=== PATIENT | female | born 1995 | race Caucasian/White ===

== ENCOUNTER 2025-08-10 19:53 | Inpatient (IN) | payer OTHER, SELFPAY ==
[2025-08-10 19:57] VITALS: BP 137/88; PULSE 82; TEMP 36.8; O2SAT 100; BMI 23.0
--- OUTSIDE RECORDS SUMMARY | 2025-08-10 22:01 | XMS_ITS | Clinical Summary ---
Author Organization [facility] Healthcare Address [address] [place] [address] Care Team Providers Care Gathering Worker Name Role Phone George Briggs MD Primary Care Provider [phone] Social History Tobacco UseTypesPacks/DayYears UsedDateSmoking Tobacco: Never Assessed CommentsUnknownSex and Gender InformationValueDate RecordedSex Assigned at Not on fileLegal WiqZipnlf62/15/2023 8:29 PM EDTGender IdentityNot on file Sexual OrientationNot on file Last Filed Vital Signs Vital SignReadingTime TakenCommentsBlood Cbxrpelr051/7604/ 12:00 PM EDT Pulse--Temperature--Respiratory Rate--Oxygen Saturation--Inhaled Oxygen Concentration--Ohvysn22.7 kg (125 lb)02/14/2021 12:00 PM ZBJXwztdr922 cm (5' 3 ) 02/14/2021 12:00 PM EDTBody Mass Index22.1407 12:00 PM EDT Plan of Treatment DateTypeDepartmentCare Team (Latest Contact Info)Nfnunmiwapi97/05/2026 10:30 AM ESTOffice Visit [facility] [address] [place] [phone] George Briggs MD [address] [place] [address] Health MaintenanceDue DateLast DoneCommentsPap Smear2016Influenza Vaccine (#1)2025ervical Cancer Tbbdhsczy09/14/2025HPV/Mfulvo7007/25/2025 Pneumococcal Vaccine: Pediatrics (0 to 5 Years) and At-Risk Patients (6 to 64 Years)Aged OutNo longer eligible based on patient's age to complete this topic Care Teams Team MemberRelationshipSpecialtyStart DateEnd Date George Briggs MD [address] [place] [address] PCP - GeneralFamily Occmecdj55/29/25
--- NOTE | 2025-08-10 22:27 | CT_ITS ---
The [address] [address] Patient Name: SIDDHARTH ZULETA MRN: [id number] date: 1995 Sex: F Assigned Patient Location: ER Current Patient Location: ER Accession/Order Number: [id number] Exam Date: 08/10/2025 22:40 Report Date: 08/10/2025 23:07 At the request of: KARLA COBIAN MD Procedure: CT lower leg RT wo con CT lower leg RT wo con 08/10/2025 10:46 PM SIGNS AND SYMPTOMS: right medial leg abscess TECHNIQUE: Multidetector CT axial slices of the right lower extremity without IV contrast. Multiplanar reformats were performed and viewed on a separate workstation and reviewed to further define anatomy and possible pathology. CT was performed with one or more of the following dose reduction techniques: Automated exposure control, adjustment of the mA and/or kV according to patient size, or use of iterative reconstruction technique. COMPARISON: None. FINDINGS: There is skin thickening along the medial aspect of the right thigh with fat stranding in the adjacent subcutaneous fat. Edema extends along the fascial planes along the vastus medialis to the level of the medial femoral condyle. No well demarcated peripherally enhancing fluid collection to suggest abscess. Mildly prominent inguinal lymph nodes are noted. CT/CT lower leg RT wo con IMPRESSION: No well demarcated peripherally enhancing fluid collection to suggest abscess. There is skin thickening along the medial aspect of the right thigh with fat stranding in the adjacent subcutaneous fat. Edema extends along the fascial planes along the vastus medialis to the level of the medial femoral condyle. This presumably represents cellulitis. Mildly prominent inguinal lymph nodes are noted on the right which are most likely reactive. Impression dictated by: Denzel Caicedo M.D. 08/10/2025 11:07 PM Dictation Location: [place] [address] Electronically authenticated by: [id number] Y Date: 08/10/2025 23:07
--- NOTE | 2025-08-10 22:46 | ED_ITS ---
HPI - Skin/Abscess/Foreign Bdy General Chief complaint: Skin/Abscess/Foreign Body Stated complaint: Extremity PAIN, Lower Time Seen by Provider: 08/10/25 20:35 Source: patient Mode of arrival: walk-in History of Present Illness HPI narrative: This 30-year-old female with no significant medical history who does not have a history of IV drug use or wrestling presents for evaluation of a red, swollen, tender area at the medial aspect of her right leg. She states that on Saturday she thought she had an ingrown hair on her leg and tried to get the hair out. She states it then developed redness and swelling around the area. She had some slight drainage several days ago. She was seen in urgent care and placed on clindamycin but has not had any relief. She does not have any fevers or chills. Her mother states she is having difficulty walking due to the infection in her right medial leg. She does not have a known history of MRSA. She has an approximately 16 x 16 cm area of erythema on the medial aspect of her right middle thigh with a central area that appears to be a small indurated abscess and around that an indurated area approximately 4 x 4 cm. It is markedly tender. There is no lymphangitic streaking. It is not circumferential. Related Data Home Medications ?Medication ?Instructions ?Recorded ?Confirmed No Known Home Medications 08/10/2507/14 Allergies Allergy/AdvReac Type Severity Reaction Status Date / Time No Known Drug Allergies Allergy Verified 08/10/25 20:03 Review of Systems ROS Status of ROS 10 or more systems reviewed and unremark able except as noted in history and below PFSH PFSH Social History Little interest or pleasure in doing things: not at all Feeling down, depressed, or hopeless: not at all Exam Narrative Exam Narrative: Vital signs and Nursing Notes reviewed: Is afebrile with a normal pulse, blood pressure is minimally elevated at 137/88, she is not hypoxic with pulse ox of 100% on room air General: Awake, alert, oriented, no acute distress, lying comfortably on the stretcher HEENT: Normocephalic atraumatic, mucous membranes are moist and pink, eyes are clear, normal conjunctiva, vision is grossly intact Chest: Lungs are clear to auscultation with good air entry, there is no wheezing rhonchi or rales appreciated no accessory muscle use, patient is speaking in complete sentences-no chest wall tenderness to palpation CVS: Regular rate and rhythm S1-S2, no murmurs rubs or gallops, pulses are brisk and equal bilaterally ABD: Soft, nondistended, nontender, no rebound guarding or rigidity, bowel sounds are normal, no pulsatile masses appreciated Extremities: Moving all extremities, there is an approximately 16 x 16 cm area of erythema at the medial portion of the right thigh. In the center of this is an indurated area approximately 3 x 3 cm and what appears to be a small indurated abscess in the center of that. No drainage was able to be expressed. The remainder of her legs are normal. She has several tattoos but none of them are new. Skin: Normal in appearance without rash,pallor, petechiae or purpura Neuro: No focal deficits Constitutional Vital Signs, click to edit/add: Last Vital Signs Temp 98.2 F 08/10/25 19:57 Pulse 82 08/10/25 19:57 Resp 16 08/10/25 19:57 BP 137/88 08/10/25 19:57 Pulse Ox 100 08/10/25 19:57 O2 Del Method Room Air 08/10/25 19:57 Course Vital Signs Vital signs: Vital Signs Temperature 98.2 F 08/10/25 19:57 Pulse Rate 82 08/10/25 19:57 Respiratory Rate 16 08/10/25 19:57 Blood Pressure 137/88 08/10/25 19:57 Pulse Oximetry 100 08/10/25 19:57 Oxygen Delivery Method Room Air 08/10/25 19:57 Temperature 98.2 F 08/10/25 19:57 Pulse Rate 82 08/10/25 19:57 Respiratory Rate 16 08/10/25 19:57 Blood Pressure 137/88 08/10/25 19:57 Pulse Oximetry 100 08/10/25 19:57 Oxygen Delivery Method Room Air 08/10/25 19:57 MDM - Skin/Abscess/Foreign Bdy MDM Narrative Medical decision making narrative: This 30-year-old female with no significant medical history who does not have a history of IV drug use or wrestling or MRSA as far as she knows who has several tattoos none of which are new presents for evaluation of 5 days of redness and swelling at the right medial thigh. The patient states that she thought she had an ingrown hair on her thigh on Saturday and tried to take it out. It then became inflamed and started to become red and swollen and tender. Her mother breezy a red line around the area yesterday and she was seen at urgent care and started on clindamycin. Since that time the symptoms have increased in size and tenderness. Her mother states she is having a hard time walking due to the pain in her medial thigh. She has not had any fevers or chills. She has an approximately 16 x 16 area of erythema at the right medial thigh with a central area of induration and small abscess. There was no drainage able to be expressed. An IV was placed and septic workup was ordered. She has a normal white count and stable hemoglobin. Lactic acid is normal. Inflammatory markers are elevated. Blood cultures are pending. Electrolytes were normal. CT scan of the extremity shows a cellulitis without drainable abscess or signs of necrotizing fasciitis. She was medicated with IV fluids, Toradol for pain, vancomycin and Unasyn. The case was discussed with the hospitalist and she is accepted for admission to [facility]. Patient is agreeable to the admission. Lab Data Labs: Lab Results 08/10/25 Range/Units 22:35 WBC 10.2 (4.0-11.0) 10^3/uL RBC 4.58 (4.20-5.40) 10^6/uL Hgb 14.6 (12.0-16.0) g/dL Hct 41.6 (36.0-48.0) % MCV 90.8 (81.0-99.0) fL MCH 31.9 (26.7-34.0) pg MCHC 35.1 (29.9-35.2) g/dL RDW 12.0 (11.0-15.0) % Plt Count 213 (150-450) 10^3/uL MPV 9.5 (9.5-13.5) fL Neut % (Auto) 67.6 (43.0-75.0) % Lymph % (Auto) 24.2 (20.5-60.0) % Woodward % (Auto) 5.9 (1.7-12.0) % Eos % (Auto) 1.5 (0.9-7.0) % Baso % (Auto) 0.5 (0.2-2.0) % Neut # (Auto) 6.9 H (1.4-6.5) 10^3/uL Lymph # (Auto) 2.5 (1.2-3.8) 10^3/uL Woodward # (Auto) 0.6 (0.3-0.8) 10^3/uL Eos # (Auto) 0.2 (0.0-0.7) 10^3/uL Baso # (Auto) 0.1 (0.0-0.1) 10^3/uL Abs Immat Gran (auto) 0.03 (0.00-0.03) 10^3/uL Imm/Tot Granulo (auto) 0.3 (0.0-0.5) % ESR 26 H (<=20) mm/hr Sodium 139 (136-145) mmol/L Potassium 3.8 (3.5-5.1) mmol/L Chloride 104 (98-107) mmol/L Carbon Dioxide 29.3 (21.0-32.0) mmol/L Anion Gap 9.5 BUN 17.0 (7.0-18.0) mg/dL Creatinine 0.69 (0.55-1.02) mg/dL Est GFR ( Amer) >60 (>=60 mL/min/1.73m^2) Est GFR (Non-Af Amer) >60 (>=60 mL/min/1.73m^2) BUN/Creatinine Ratio 24.6 Glucose 92 (74-106) mg/dL Lactate 0.8 (0.4-2.0) mmol/L Calcium 9.5 (8.5-10.1) mg/dL Total Bilirubin 0.3 (0.2-1.0) mg/dL AST 17 (15-37) U/L ALT 19 (14-59) U/L Alkaline Phosphatase 67 (46-116) U/L C-Reactive Protein 1.49 H (<=0.50) mg/dL Total Protein 8.0 (6.4-8.2) g/dL Albumin 4.4 (3.4-5.0) g/dL Globulin 3.6 g/dL Albumin/Globulin Ratio 1.2 Discharge Plan Discharge Chief Complaint: Skin/Abscess/Foreign Body Clinical Impression: Cellulitis, Cellulitis of right thigh Patient Disposition: Admitted as Observation Time of Disposition Decision: 23:26 Condition: Good
[2025-08-10 22:48] LABS: Hematocrit 41.6 % (36.0-48.0); Hemoglobin 14.6 g/dL (12.0-16.0); Immature Granulocytes Abs Auto 0.03 10^3/uL (0.00-0.03); Immature Granulocytes Pct Auto 0.3 % (0.0-0.5); Lymphocytes Absolute Auto 2.5 10^3/uL (1.2-3.8); Mean Corpuscular HGB Conc 35.1 g/dL (29.9-35.2); Mean Corpuscular Hemoglobin 31.9 pg (26.7-34.0); Mean Corpuscular Volume 90.8 fL (81.0-99.0); Platelet Count 213 10^3/uL (150-450); Red Blood Count 4.58 10^6/uL (4.20-5.40); White Blood Count 10.2 10^3/uL (4.0-11.0)
[2025-08-10 23:05] LABS: Alanine Aminotransferase 19 U/L (14-59); Albumin Globulin Ratio 1.2; Albumin Level 4.4 g/dL (3.4-5.0); Alkaline Phosphatase 67 U/L (46-116); Anion Gap 9.5; Aspartate Amino Transferase 17 U/L (15-37); Blood Urea Nitrogen 17.0 mg/dL (7.0-18.0); Calcium 9.5 mg/dL (8.5-10.1); Carbon Dioxide 29.3 mmol/L (21.0-32.0); Chloride 104 mmol/L (98-107); Estimated GFR (African America >60 (>=60 mL/min/1.73m^2); Estimated GFR (Non-African Ame >60 (>=60 mL/min/1.73m^2); Globulin 3.6 g/dL; Glucose 92 mg/dL (74-106); Potassium 3.8 mmol/L (3.5-5.1); Sodium 139 mmol/L (136-145); Total Protein 8.0 g/dL (6.4-8.2)
[2025-08-10] MEDS: KETOROLAC TROMETHAMINE 30 MG/ML VIAL IVP (23:05)
[2025-08-10] MEDS: VANCOMYCIN HCL 1,000 MG in 0.9 % SODIUM CHLORIDE 250 ML 250 MG IV (23:06)
[2025-08-10 23:07] LABS: Lactate/Lactic Acid 0.8 mmol/L (0.4-2.0)
[2025-08-10] MEDS: AMPICILLIN SODIUM/SULBACTAM NA 3 GM in 0.9 % SODIUM CHLORIDE 100 ML IV (23:07)
[2025-08-11 01:02] VITALS: BP 137/83; PULSE 74; O2SAT 100
[2025-08-11 01:15] VITALS: BP 127/84; PULSE 71; TEMP 36.9; O2SAT 98
[2025-08-11 01:26] VITALS: BMI 24.8
[2025-08-11] MEDS: 0.9 % SODIUM CHLORIDE 1,000 ML 150 ML IV (02:02)
[2025-08-11] MEDS: VANCOMYCIN HCL 500 MG in 0.9 % SODIUM CHLORIDE 250 ML 200 MG IV (02:06)
[2025-08-11 04:00] VITALS: BP 125/77; PULSE 95; TEMP 36.7; O2SAT 95
[2025-08-11] MEDS: AMPICILLIN SODIUM/SULBACTAM NA 3 GM in 0.9 % SODIUM CHLORIDE 100 ML IV ×2 (05:29→13:41)
[2025-08-11 05:34] LABS: Hematocrit 37.6 % (36.0-48.0); Hemoglobin 13.3 g/dL (12.0-16.0); Immature Granulocytes Abs Auto 0.02 10^3/uL (0.00-0.03); Immature Granulocytes Pct Auto 0.2 % (0.0-0.5); Lymphocytes Absolute Auto 2.4 10^3/uL (1.2-3.8); Mean Corpuscular HGB Conc 35.4 g/dL (29.9-35.2); Mean Corpuscular Hemoglobin 32.5 pg (26.7-34.0); Mean Corpuscular Volume 91.9 fL (81.0-99.0); Platelet Count 188 10^3/uL (150-450); Red Blood Count 4.09 10^6/uL (4.20-5.40); White Blood Count 9.1 10^3/uL (4.0-11.0)
[2025-08-11 05:54] LABS: Alanine Aminotransferase 16 U/L (14-59); Albumin Globulin Ratio 1.1; Albumin Level 3.2 g/dL (3.4-5.0); Alkaline Phosphatase 51 U/L (46-116); Anion Gap 10.9; Aspartate Amino Transferase 14 U/L (15-37); Blood Urea Nitrogen 13.0 mg/dL (7.0-18.0); Calcium 8.3 mg/dL (8.5-10.1); Carbon Dioxide 25.9 mmol/L (21.0-32.0); Chloride 107 mmol/L (98-107); Estimated GFR (African America >60 (>=60 mL/min/1.73m^2); Estimated GFR (Non-African Ame >60 (>=60 mL/min/1.73m^2); Globulin 2.8 g/dL; Glucose 87 mg/dL (74-106); Potassium 3.8 mmol/L (3.5-5.1); Sodium 140 mmol/L (136-145); Total Protein 6.0 g/dL (6.4-8.2)
[2025-08-11 07:28] VITALS: BP 122/78; PULSE 74; TEMP 36.6; O2SAT 96
[2025-08-11] MEDS: ENOXAPARIN SODIUM 40 MG/0.4 ML SYRINGE SUBQ (09:56)
[2025-08-11] MEDS: VANCOMYCIN HCL 1,250 MG in 0.9 % SODIUM CHLORIDE 250 ML 250 MG IV (10:11)
--- NOTE | 2025-08-11 11:30 | CM.NOTE ---
Addendum entered by Mary Alice Adam 08/11/25 15:32: Incorrect entry- Dr. Urbano not Dr. Marroquin Original Note: Rounds made with Dr. Marroquin, discussed plan of care with pt. Pt will discharge to home with oral antibiotics. Pt will f/u with PCP. Pt states her plan is to f/u with the physician that has taken over for Dr. Delgado. MS secretary bookkeeper will call to schedule prior to discharge.
[2025-08-11 11:44] VITALS: BP 133/78; PULSE 77; TEMP 36.6; O2SAT 100
[2025-08-11] MEDS: ACETAMINOPHEN 325 MG TABLET 650 MG PO (11:48)
--- NOTE | 2025-08-11 12:52 | PM.IMHP1 ---
Internal Medicine - H&P: HPI History of Present Illness Chief complaint: RIGHT THIGH CELLULITIS Narrative: Patient is a 30-year-old female with no significant past medical history, who presented to the ER due to redness and swelling and pain in her right thigh. Patient states that few days ago she thought she had ingrown hair on her leg and tried to get it out, states that she developed redness and swelling in that area, she had slight drainage few days ago, she went to urgent care and was told she has MRSA for which she was placed on clindamycin, she got concerned, she took the medication for couple of days and then she decided to come here to the hospital for further evaluation and management, she denies any fevers or chills, she denies any history of MRSA. In the ER here she is afebrile, no leukocytosis, CRP minimally elevated. CT of the right leg showed cellulitis with no evidence of abscess she was given IV antibiotics in the ER and was kept here for observation. 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 Highest level of school completed/degree received: some college, no degree Are you now , , , , never or living with a partner: never In a typical week, how many times do you talk on the telephone with family, friends, or neighbors: 3 or more times per week How often do you get together with friends or relatives: 3 or more times per week How often do you attend congregational or scientology services: never Little interest or pleasure in doing things: not at all Feeling down, depressed, or hopeless: not at all Feel stressed/tense/nervous/anxious/difficulty sleeping: not at all Do you think of yourself as: straight/heterosexual Gender Identity: female Meds Home Medications and Allergies Home Medications ?Medication ?Instructions ?Recorded ?Confirmed ?Type amoxicillin 875 mg-potassium 1 tab PO Q12H 7 days #14 tabs 08/11/25 Rx clavulanate 125 mg tablet clobetasol 0.05 % topical cream 1 applic topical BID #15 grams 08/11/25 Rx Allergies Allergy/AdvReac Type Severity Reaction Status Date / Time No Known Drug Allergies Allergy Verified 08/10/25 20:03 Exam Narrative Exam Narrative: Const General: cooperative HEENT Normal oropharyngeal mucosa without any ulcers or exudates Eyes: Conjunctiva normal Pulmonary Auscultation: clear to auscultation , no crackles, no wheezes Cardiovascular Rate: normal rate Rhythm: regular rhythm Heart Sounds: S1 normal, S2 normal and no murmurs GI Inspection: non-distended Palpation: soft, not firm and nontender. No rigidity or rebound. Deferred Neuro General: alert, awake and oriented x3. No obvious new focal deficit Extrem General: Right medial thigh area of erythema, small area of induration, small scab on puncture like wound. no discharge noted. slightly tender to touch. all improving since yesterday. Psych Appearance: appropriate affect. Grossly normal Constitutional Vital Signs, click to edit/add: Last Vital Signs Temp 97.9 F 08/11/25 11:44 Pulse 77 08/11/25 11:44 Resp 16 08/11/25 11:44 BP 133/78 08/11/25 11:44 Pulse Ox 100 08/11/25 11:44 O2 Del Method Room Air 08/11/25 11:44 Internal Medicine - H&P: Reslt Labs Labs: Short CBC 08/10/25 08/11/25 Range/Units 22:35 05:03 WBC 10.2 9.1 (4.0-11.0) 10^3/uL Hgb 14.6 13.3 (12.0-16.0) g/dL Hct 41.6 37.6 (36.0-48.0) % Plt Count 213 188 (150-450) 10^3/uL BMP 08/10/25 08/11/25 22:35 05:03 Sodium 139 140 Potassium 3.8 3.8 Chloride 104 107 Carbon Dioxide 29.3 25.9 BUN 17.0 13.0 Creatinine 0.69 0.45 L Glucose 92 87 Calcium 9.5 8.3 L Liver Function 08/10/25 08/11/25 Range/Units 22:35 05:03 Total Bilirubin 0.3 0.4 (0.2-1.0) mg/dL AST 17 14 L (15-37) U/L ALT 19 16 (14-59) U/L Alkaline Phosphatase 67 51 (46-116) U/L Albumin 4.4 3.2 L (3.4-5.0) g/dL Assessment and Plan Assessment and Plan (1) Cellulitis of right thigh: Plan Patient with few days of erythema and redness on the right medial thigh area, already tried clindamycin p.o. as outpatient and feels she was getting worse. She came to the hospital, underwent CT scan of the right leg in the ER which showed cellulitis, no evidence of abscess formation. She remained afebrile here, no leukocytosis, hemodynamically completely stable. Received some IV antibiotics while here, plan to transition her to oral antibiotics of Augmentin, patient with no history of MRSA, does not carry risks for that, low clinical suspicion for that. I sent her prescription of Augmentin to complete the course of treatment. Also sent steroid cream topical to apply on the affected area. Discussed with patient at bedside, all question answered, patient feels fine, she does report some pain periodically, advised to take ibuprofen for that as needed. Patient would like to go home as it is New Year's Dulce and she is feeling fine and does not need to be in the hospital. Discussed with patient at bedside, all questions answered, patient in agreement and comfortable with the plan. Advised to return to the ER if any recurrence or worsening symptoms otherwise, follow-up with PCP as outpatient.
[2025-08-11] MEDS: CLOBETASOL PROPIONATE 0.05% CREAM 15 GRAM TUBE 1 APPLIC TOPICAL (13:38)
--- NOTE | 2025-08-11 23:43 | NUTR.NU ---
Pt was admitted 08/10/25 w/dx cellulitis and non-pitting edema to E. She was discharged to home 08/11/25 w/<24 hour stay. PO intakes of regular diet were 100%. Encourage adequate nutrients for healing and contact Dietitian w/any nutritional questions or concerns.
--- NOTE | 2025-08-13 10:21 | PC.NURSE ---
Follow up appt. at [facility] in [place] (Dr. Delgado's office) 08/17 @ 1pm
--- NOTE | 2025-08-13 14:14 | CM.DCFOLLOWU ---
1st attempt, no answer, 08/13
--- OUTSIDE RECORDS SUMMARY | 2025-08-13 15:09 | XMS_ITS | Clinical Summary ---
Author Organization [facility] Address [address] [place] [address] Care Team Providers Care Hospice Rn Name Role Phone George Briggs MD Primary Care Provider [phone] Social History Tobacco UseTypesPacks/DayYears UsedDateSmoking Tobacco: Never Assessed CommentsUnknownSex and Gender InformationValueDate RecordedSex Assigned at Not on fileLegal CdhQgsozh52/15/2023 8:29 PM EDTGender IdentityNot on file Sexual OrientationNot on file Last Filed Vital Signs Vital SignReadingTime TakenCommentsBlood Qcyvyebr953/7604/ 12:00 PM EDT Pulse--Temperature--Respiratory Rate--Oxygen Saturation--Inhaled Oxygen Concentration--Ntyrpf61.7 kg (125 lb)02/14/2021 12:00 PM IBBAjrznp321 cm (5' 3 ) 02/14/2021 12:00 PM EDTBody Mass Index22.1407 12:00 PM EDT Plan of Treatment DateTypeDepartmentCare Team (Latest Contact Info)Yvfyrqjizoo63/05/2026 10:30 AM ESTOffice Visit [place] [address] [place] [address] George Briggs MD [address] [place], [place] [id number] 08/17/2025 1:00 PM ESTOffice Visit [place] [address] [place] [address] George Briggs MD [address] [place] [address] Health MaintenanceDue DateLast DoneCommentsPap Smear2016Influenza Vaccine (#1)5Cervical Cancer Gyckmtusn49/14/2025HPV/Tckgly0307/25/2025 Pneumococcal Vaccine: Pediatrics (0 to 5 Years) and At-Risk Patients (6 to 64 Years)Aged OutNo longer eligible based on patient's age to complete this topic Care Teams Team MemberRelationshipSpecialtyStart DateEnd Date George Briggs MD [address] [place] [address] PCP - GeneralFamily Mzauurxq82/29/25
--- NOTE | 2025-08-16 11:27 | CM.DCFOLLOWU ---
Person spoke with:Mary Alice How are you feeling? Better How is your pain? Better Did you understand your discharge instructions? Yes Do you have any questions about your discharge instructions? No Were you given any prescriptions at discharge? Yes Were you able to get your prescriptions filled? Yes Do you understand how to take your medications as ordered? Yes Do you have any questions about your follow up appointment and do you plan to keep your follow up appointment? No questions. The patient had her follow up appt today and was prescribed a different antibiotic. Is there anything else that you would like to discuss? No Questions/Comments/Concerns/Other:
== END 2025-08-11 14:46 | disposition home or self-care (01) | DRG 603 ==
LOC: ER 23:26 → MS 08-11 12:50
PROVIDERS: Admitting Provider Internal Medicine; Emergency Provider Emergency Medicine; Visit Provider Internal Medicine
DX: L03.115 Cellulitis of right lower limb (principal)
CPT/HCPCS: 36415; 73700; 80053; 83605; 84703; 85025; 85652; 86140; 87040; 96365; 96366; 96368; 96375; 99285; J0295; J1650; J1885; J3373